=== PATIENT | male | born 1940 | race Caucasian/White ===

== ENCOUNTER → 2018-10-08 13:05 | Outpatient (BNVA) | payer OTHER, SELFPAY | PROVIDERS: PCP Family Medicine; Visit Provider Nurse Practitioner Primary Care | DX: I25.10 Atherosclerotic heart disease of native coronary artery without angina pectoris; I10 Essential (primary) hypertension; I48.2 Chronic atrial fibrillation; E78.5 Hyperlipidemia, unspecified; J44.9 Chronic obstructive pulmonary disease, unspecified; Z87.891 Personal history of nicotine dependence; Z45.02 Encounter for adjustment and management of automatic implantable cardiac defibrillator | CPT/HCPCS: 93282; 99213 ==

== ENCOUNTER → 2019-03-22 10:29 | Outpatient (BNVA) | payer OTHER, SELFPAY | PROVIDERS: PCP Family Medicine; Visit Provider Nurse Practitioner Gerontology | DX: N40.2 Nodular prostate without lower urinary tract symptoms (principal); R35.0 Frequency of micturition; J44.9 Chronic obstructive pulmonary disease, unspecified; I10 Essential (primary) hypertension; Z80.42 Family history of malignant neoplasm of prostate; R35.1 Nocturia | CPT/HCPCS: 99213 ==

== ENCOUNTER → 2019-05-04 13:15 | Outpatient (BNVA) | payer OTHER, SELFPAY | PROVIDERS: Visit Provider Nurse Practitioner Family | DX: I25.10 Atherosclerotic heart disease of native coronary artery without angina pectoris (principal); I48.2 Chronic atrial fibrillation; I10 Essential (primary) hypertension; Z45.02 Encounter for adjustment and management of automatic implantable cardiac defibrillator; E78.5 Hyperlipidemia, unspecified; J44.9 Chronic obstructive pulmonary disease, unspecified; Z87.891 Personal history of nicotine dependence | CPT/HCPCS: 93289; 99213 ==

== ENCOUNTER → 2019-09-28 15:02 | Outpatient (BNVA) | payer OTHER, SELFPAY | PROVIDERS: Visit Provider Nurse Practitioner Gerontology | DX: N40.1 Benign prostatic hyperplasia with lower urinary tract symptoms (principal); R35.0 Frequency of micturition | CPT/HCPCS: 99213 ==

== ENCOUNTER → 2020-05-03 13:27 | Outpatient (BNVA) | payer OTHER, SELFPAY | PROVIDERS: Visit Provider Physician Assistant | DX: I48.21 Permanent atrial fibrillation (principal); I42.8 Other cardiomyopathies; Z45.02 Encounter for adjustment and management of automatic implantable cardiac defibrillator | CPT/HCPCS: 93289; 99211 ==

== ENCOUNTER → 2021-01-03 14:23 | Outpatient (BNVA) | payer OTHER, SELFPAY | PROVIDERS: Visit Provider Physician Assistant | DX: Z95.810 Presence of automatic (implantable) cardiac defibrillator (principal); I42.8 Other cardiomyopathies | CPT/HCPCS: 93282 ==

== ENCOUNTER → 2021-07-04 12:55 | Outpatient (BNVA) | payer OTHER, SELFPAY | PROVIDERS: Visit Provider Physician Assistant | DX: I48.21 Permanent atrial fibrillation (principal); Z45.02 Encounter for adjustment and management of automatic implantable cardiac defibrillator; J44.9 Chronic obstructive pulmonary disease, unspecified | CPT/HCPCS: 93282; 99211 ==

== ENCOUNTER → 2022-07-10 13:03 | Outpatient (BNVA) | payer OTHER, SELFPAY | PROVIDERS: Visit Provider Physician Assistant | DX: Z95.810 Presence of automatic (implantable) cardiac defibrillator (principal); I42.8 Other cardiomyopathies | CPT/HCPCS: 93282 ==

== ENCOUNTER 2023-07-09 08:08 | Outpatient (CLI) | payer SELFPAY | END 2023-07-09 08:09 | disposition home or self-care (01) | LOC: DI.CARD 08:09 | PROVIDERS: Visit Provider Physician Assistant | DX: I48.21 Permanent atrial fibrillation (principal) | CPT/HCPCS: 93010 ==

== ENCOUNTER → 2023-07-09 10:03 | Outpatient (BNVA) | payer MEDICARE, SELFPAY | PROVIDERS: Visit Provider Physician Assistant | DX: Z45.02 Encounter for adjustment and management of automatic implantable cardiac defibrillator (principal); I48.21 Permanent atrial fibrillation; I42.8 Other cardiomyopathies | CPT/HCPCS: 93282; 99213 ==